=== PATIENT | female | born 1945 | race Caucasian/White ===

== ENCOUNTER → 2025-02-01 14:12 | Outpatient (BNVA) | payer MEDICARE, SELFPAY | PROVIDERS: PCP Family Medicine; Referring Provider Family Medicine; Visit Provider Orthopaedic Surgery | DX: M25.561 Pain in right knee (principal) | CPT/HCPCS: 73560; 73565 ==

== ENCOUNTER → 2025-02-23 12:57 | Outpatient (BNVA) | payer MEDICARE, SELFPAY | PROVIDERS: PCP Family Medicine; Visit Provider Orthopaedic Surgery | DX: M17.11 Unilateral primary osteoarthritis, right knee (principal) | CPT/HCPCS: 99213 ==

== ENCOUNTER → 2025-05-27 11:05 | Outpatient (BNVA) | payer MEDICARE, SELFPAY | PROVIDERS: PCP Family Medicine; Visit Provider Orthopaedic Surgery | DX: M17.11 Unilateral primary osteoarthritis, right knee (principal); Z01.818 Encounter for other preprocedural examination; G89.29 Other chronic pain | CPT/HCPCS: 36415; 80053; 81001; 85025; 99213 ==

== ENCOUNTER → 2025-06-04 11:34 | Outpatient (BNVA) | payer MEDICARE, SELFPAY | PROVIDERS: PCP Family Medicine; Visit Provider Family Medicine | DX: Z01.818 Encounter for other preprocedural examination (principal); I45.10 Unspecified right bundle-branch block; I44.4 Left anterior fascicular block; I42.0 Dilated cardiomyopathy | CPT/HCPCS: 93005 ==

== ENCOUNTER → 2025-06-09 09:14 | Day surgery (SDC) | payer MEDICARE, SELFPAY ==
--- NOTE | 2025-06-09 09:47 | PC.NURSE ---
Patient was in the waiting room. Silvana went out to get her patient and was contacted by Homar Joanne's guest. Mrs. Rubio stated she wasn't doing this and was exited the building.
== END ==
PROVIDERS: PCP Family Medicine; Visit Provider Orthopaedic Surgery
DX: Z53.8 Procedure and treatment not carried out for other reasons (principal)
CPT/HCPCS: J0131; J1100; J2405; J2704

== ENCOUNTER → 2025-07-26 13:09 | Outpatient (BNVA) | payer MEDICARE, SELFPAY | PROVIDERS: PCP Family Medicine; Visit Provider Orthopaedic Surgery | DX: M17.11 Unilateral primary osteoarthritis, right knee (principal) | CPT/HCPCS: 99213 ==

== ENCOUNTER 2025-07-28 05:49 | Day surgery (SDC) | payer MEDICARE, SELFPAY ==
[2025-07-28 06:21] VITALS: BP 135/60; PULSE 98; RESP 18; TEMP 36.6; O2SAT 98; BMI 29.3
--- NOTE | 2025-07-28 06:30 | ECG_ITS ---
[employer] Test Date: 2025-07-28 Pat Name: SHAMA LOPEZ Department: Room: Gender: Female Outside Sales Professional: : 1945 Requested By: Lia Cano Order Number: [id number] Reading MD: Measurements Intervals [place] Rate: 81 P: 46 PA: 187 QRS: -63 QRSD: 150 T: 13 QT: 419 QTc: 489 Interpretive Statements SINUS RHYTHM RIGHT BUNDLE BRANCH BLOCK [120+ ms QRS DURATION, UPRIGHT V1, 40+ ms S IN I/aVL/V4/V5/V6] LEFT ANTERIOR FASCICULAR BLOCK [QRS AXIS <= -45, QR IN I, RS IN II] VOLTAGE CRITERIA FOR LVH [MEETS CRITERIA IN ONE OF: R(aVL), S(V1), R(V5), R(V5/V6)+S(V1)] POSSIBLE SEPTAL MYOCARDIAL INFARCTION , PROBABLY OLD [30 ms Q WAVE IN V1/V2] [email or web address]
--- NOTE | 2025-07-28 06:35 | PC.NURSE ---
16fr rudd placed at 0635. stat lock placed on left thigh. Urinalysis obtained at this time.
[2025-07-28 07:06] LABS: Hematocrit 39.3 % (36-47); Hemoglobin 12.50 g/dL (11.27-16.99); Mean Corpuscular HGB Conc 31.8 g/dL (30-55); Mean Corpuscular Hemoglobin 28.6 pg (27-33); Mean Corpuscular Volume 89.9 fl (85-98); Nucleated Red Blood Cells % 0 %; Platelet Count 179 10^3/cmm (157-399); Red Blood Count 4.37 10^6/uL (3.85-5.65); White Blood Count 6.44 10^3/uL (3.29-11.43)
--- NOTE | 2025-07-28 07:07 | P.MISC_ITS ---
Miscellaneous Note Note: Patient presented [facility]. Nurses felt pulse was irregular, but EKG showed NSR. Also there was concern from nursing for UTI due to malodorous perineal area, so rudd and UA and was placed pre-operatively. A Discussion between surgeon, , and led to decision to postpone surgery after a more thorough evaluation due to 1.) concern for her dementia advancing quite quickly since being seen in the ortho clinic and with Dr. Aranda and 2.) the concern for the patient's ability to follow post-op instructions in setting of advancing dementia (patient doesn't know why she is here this morning, has already tried to pull her rudd catheter out) as well as 3.) her 's ability to care for her. So placement would most likely be required, which patient is refusing. Conversation also revealed that stated she had fallen yesterday. This was unwitnessed by him. He feels she is acting no different than normal, but due to patient's advanced age and the unwitnessed fall, would be prudent to send to ER for further evaluation of this fall. is willing to bring her to ER.
--- NOTE | 2025-07-28 07:09 | PM.PN ---
Subjective Subjective: Patient is in for right total knee arthroplasty. However, she is very confused today. She asked multiple times why she is here at the hospital. When we have discussed her total knee arthroplasty the been talking about since January she states she does not remember any of this. Her confirms that her dementia has worsened over the last 4 to 5 months. Anesthesia initial evaluation felt that she had irregular heart rate however EKG was negative for any new findings. There is no signs of A-fib. Labs are being drawn for evaluation. Presently patient is not complaining of any knee pain at this time. Even with my palpation of the area. I have expressed to her that I am more concerned about the postoperative care and being able to follow through with instructions. We briefly discussed the possibility of a rehab stay postoperatively and the patient is very adamant about not doing this Vitals/I&O/Wt Last Vital Signs Temp 97.9 F 07/28/25 06:21 Pulse 98 07/28/25 06:21 Resp 18 07/28/25 06:21 BP 135/60 07/28/25 06:21 Pulse Ox 98 07/28/25 06:21 O2 Del Method Room Air 07/28/25 06:21 Weight last 48 hrs Weight 171 lb Data 07/28/25 06:58 07/28/25 06:58 A&P Assessment and plan 1. Arthritis of knee, right: Patient is here this morning for a right total knee arthroplasty that was scheduled sometime ago. She has been cleared by Dr. Aranda for medical clearance. She been seen by myself for more than 1 occasion with most recently being seen yesterday. Medical evaluation does not discuss any type of dementia. I have no clinical notes from their primary care provider that they usually see. Patient yesterday be had to be reminded about having her knee replaced which she seemed to remember however this morning she continually keeps asking why she is at the hospital what type of surgery they want to do. She is very confused this morning and I have concerns about postoperative care. lives with her however states that she fell the other day and had a hard time getting her back up. Patient is not interested in rehab stay and is very adamant about it postoperatively. I myself have seen increased memory loss and signs of dementia since I originally saw her back in January of this year. Therefore, at this time I do not feel that we should proceed forward with the surgery at this time. I believe that she needs to be worked up by her primary care to see if there is anything further that can be done to help with her mental status. I have also expressed to the that I am more concerned about the postoperative care than doing the surgery itself. I am concerned the patient will not follow through with postoperative instructions and even though he is there she has to be able to do this. I am also concerned that she will not go through with rehab in the end and end up with a flexion contracture of her knee. She then has a new knee that is nonfunctional. So at this time we will cancel surgery and await further workup by her primary care. PDMP PDMP Reviewed: Not Reviewed Attestations Medical Necessity Statement*: Patient in need of medical workup for dementia. This will be done through her primary care provider Coding Level of Care Code Acute Code for [facility] Fwd Diagnoses Arthritis of knee, right M17.11
[2025-07-28 07:10] LABS: Glucose Urine UA Negative (Normal); Nitrate Urine Negative (Negative); Specific Gravity, Urine 1.020 (1.005-1.030)
[2025-07-28 07:12] LABS: Add Urine Microscopic? YES
--- NOTE | 2025-07-28 07:22 | PC.NURSE ---
This RN went and got the patient out of the restroom in the waiting room area. At that time I noted a foul odor, was unsure if it was the urine at that time. Then when we got the patient into the room. Patient was very confused but it was noted that the patient had dementia. During the assessment HOME Rai said the patients heart rhythm sounded irregular. After speaking with Dr. Gastelum she recommend getting an EKG and a urinalysis. Both collected. During placing the rudd cath the stated the patient fell last night and it took awhile to get her out of the floor. Dr. Mehta notified of the concerns after he spoke with the patient he did not feel comfortable to do the case. Dr. Gastelum spoke with the about the fall and he stated he did not witness the fall, that he just found her in the floor. Dr. Gastelum felt like it was the best to have the patient evaluated in the emergency room but she also wanted to recheck potassium. Blood work obtained and patient then sent to the emergency room via gurney and put in ER room 14. Charge nurse was in the room to receive report.
[2025-07-28 07:23] LABS: Alanine Aminotransferase 9 U/L (0-33); Albumin Level 3.8 g/dL (3.5-5.2); Alkaline Phosphatase 104 U/L (35-105); Aspartate Amino Transferase 24 U/L (0-32); Blood Urea Nitrogen 30 mg/dL (8-23); Calcium 9.2 mg/dL (8.5-10.5); Carbon Dioxide 22 mmol/L (22-29); Chloride 103 mmol/L (98-107); Creatinine Clr Calc Pharmacy 57.4721; Globulin 2.6 g/dL (1.3-4.6); Glucose 109 mg/dL (65-115); Osmolality Calculated 295 mOsm/kg (285-295); Sodium 139 mmol/L (136-145); Total Protein 6.4 g/dL (6.6-8.7)
[2025-07-28 07:24] LABS: Anion Gap 18.0 (5-19); Potassium 4.0 mmol/L (3.5-5.1)
[2025-07-28 07:36] LABS: UA Slide Review UA Slide Review Perf
== END 2025-07-28 07:15 | disposition home or self-care (01) ==
PROVIDERS: Anesthesiology; PCP Family Medicine; Visit Provider Orthopaedic Surgery
PROC: (CPT 27447; principal; 2025-07-28 07:00)
DX: Z53.8 Procedure and treatment not carried out for other reasons (principal)
CPT/HCPCS: 36415; 51702; 80053; 81001; 85025; 87086; 93005

== ENCOUNTER 2025-07-28 07:13 | Emergency (ER) | payer MEDICARE, SELFPAY ==
[2025-07-28 07:16] VITALS: BP 135/99; PULSE 100; RESP 18; TEMP 36.5; O2SAT 99
--- OUTSIDE RECORDS SUMMARY | 2025-07-28 07:17 | XMS_ITS | Encounter Summary ---
Author Organization [facility] Address [address] [place] [address] Care Team Providers Care Converter Skimmer Name Role Phone Unavailable Primary Care Provider Unavailabl e Encounter Details Date Type Department Care Team (Late st Contact Info) Description 07/04/2013 Ancillary Orders [facility] [place] [address] [place] [address] Social History Tobacco Use Types Packs/Day Years Used Date Smoking Tobacco: Never Assessed Comments Unknown Sex and Gender Information Value Date Recorded Sex Assigned at Not on file Legal Sex Female 5:07 AM SUPPORT COORDINATOR Gender Identity Not on file Sexual Orientation Not on file documented as of this encounter Plan of Treatment Not on file documented as of this encounter Procedures Procedure Name Priority Date/Time Associated Diagnosis Comments CBC WITH DIFFERENTIAL Routine 07/04/2013 1:00 PM CDT TSH Routine 07/04/2013 1:00 PM CDT IRON LEVEL Routine 07/04/2013 1:00 PM CDT HEMOGLOBIN A1C Routine 07/04/2013 1:00 PM CDT FERRITIN Routine 07/04/2013 1:00 PM CDT LIPID PANEL Routine 07/04/2013 1:00 PM CDT COMPREHENSIVE METABOLIC PANEL Routine 07/04/2013 1:00 PM CDT documented in this encounter Results * (ABNORMAL) LIPID PANEL (07/04/2013 1:00 PM CDT) CHOLESTEROL 235(H) 130 - 200 mg/dL 07/06/2013 8:04 PM CDT [facility] TRIGLYCERIDE 175 30 - 200 mg/dL 07/06/2013 8:04 PM CDT [facility] [employer] [facility] HDL 64 35 - 80 mg/dL 07/06/2013 8:04 PM CDT [facility] LDL CALCULATED 136(H) 0 - 100 mg/dL 07/06/2013 8:04 PM CDT [facility] [employer] [facility] Blood specimen (specimen) 07/04/2013 1:00 PM CDT 07/06/2013 7:50 PM CDT Narrative [facility] - 07/06/2013 8:04 PM CDT TOTAL CHOLESTEROL mg/dL Desirable <200 Borderline high 200-239 High >=240 TRIGLYCERIDES mg/dL Normal <150 Borderline high 150-199 High 200-499 Very high >=500 HDL CHOLESTEROL mg/dL Low <40 Normal 40-60 Desirable >60 LDL CHOLESTEROL mg/dL Optimal <100 Low risk 100-129 Borderline high 130-159 High 160-189 Very high >=190 Based on AHA/NCEP Guidelines us External Provider Mtnv CHEMISTRY ORDERABLES Genesis l Result [facility] [employer] [facility] CLIA # [id number] [address] [place] [address] * (ABNORMAL) COMPREHENSIVE METABOLIC PANEL (07/04/2013 1:00 PM CDT) SODIUM 140 136 - 145 mmol/L 07/06/2013 8:04 PM CDT [facility] POTASSIUM 4.8 3.5 - 5.1 mmol/L 07/06/2013 8:04 PM CDT [facility] CHLORIDE 102 98 - 107 mmol/L 07/06/2013 8:04 PM CDT [facility] CO2 30 21 - 32 mmol/L 07/06/2013 8:04 PM CDT [facility] CALCIUM 9.3 8.5 - 10.1 mg/dL 07/06/2013 8:04 PM CDT [facility] [employer] [facility] BUN 10 7 - 18 mg/dL 07/06/2013 8:04 PM [facility] CREATININE 1.00 0.60 - 1.30 mg/dL 07/06/2013 8:04 PM [facility] GLUCOSE 85 74 - 106 mg/dL 07/06/2013 8:04 PM [facility] TOTAL PROTEIN 7.0 6.4 - 8.2 g/dL 07/06/2013 8:04 PM [facility] ALBUMIN 3.8 3.4 - 5.0 g/dL 07/06/2013 8:04 PM [facility] BILIRUBIN TOTAL 0.5 0.2 - 1.0 mg/dL 07/06/2013 8:04 PM [facility] ALKALINE PHOSPHATASE 70 50 - 136 U/L 07/06/2013 8:04 PM [facility] AST 28 15 - 37 U/L 07/06/2013 8:04 PM [facility] ALT 21(L) 30 - 65 U/L 07/06/2013 8:04 PM [facility] GFR 55(L) >=60 mL/min/1.7 3 sq meter 07/06/2013 8:04 PM [facility] Comment: eGFR has not been validated for use in the elderly (> 70 years of age), women, patients with serious co-morbid conditions, or persons with extremes of body size or muscle mass and should also be interpreted with caution in patients with acute kidney failure, dialysis dependant patients, patients reporting exceptional dietary intake (e.g. vegetarian diet, high protein diets, creatine supplementation), and patients with severe liver disease. Based on National Kidney Disease Education Program GFR, 67 >=60 mL/min/1.7 3 sq meter 07/06/2013 8:04 PM [facility] Comment: eGFR has not been validated for use in the elderly (> 70 years of age), women, patients with serious co-morbid conditions, or persons with extremes of body size or muscle mass and should also be interpreted with caution in patients with acute kidney failure, dialysis dependant patients, patients reporting exceptional dietary intake (e.g. vegetarian diet, high protein diets, creatine supplementation), and patients with severe liver disease. Based on National Kidney Disease Education Program Blood specimen (specimen) 07/04/2013 1:00 PM CDT 07/06/2013 7:50 PM CDT us External Provider Mtnv CHEMISTRY ORDERABLES Genesis l Result [facility] [place] CLIA # [id number] [address] [place] [address] * (ABNORMAL) CBC WITH DIFFERENTIAL (07/04/2013 1:00 PM CDT) WBC 7.0 4.0 - 10.0 K/uL 07/04/2013 6:24 PM CDT [facility] [place] RBC 4.44 3.93 - 5.22 M/uL 07/04/2013 6:24 PM CDT [facility] [place] HEMOGLOBIN 13.7 11.2 - 15.7 g/dL 07/04/2013 6:24 PM CDT [facility] [place] HEMATOCRIT 40.4 34.1 - 44.9 % 07/04/2013 6:24 PM CDT [facility] [employer] [facility] [place] MCV 91.0 79.4 - 94.8 fL 07/04/2013 6:24 PM CDT [facility] [employer] [facility] [place] MCH 30.9 25.6 - 32.2 pg 07/04/2013 6:24 PM CDT [facility] [employer] [facility] [place] MCHC 33.9 32.2 - 35.5 g/dL 07/04/2013 6:24 PM CDT [facility] [employer] [facility] [employer] [facility] [place] RDW 12.7 11.0 - 14.5 % 07/04/2013 6:24 PM CDT [facility] [place] RDW-STDEV 41.4 37.0 - 54.0 fL 07/04/2013 6:24 PM CDT [facility] [employer] [facility] [place] PLATELETS 216 163 - 337 K/uL 07/04/2013 6:24 PM CDT [facility] [employer] [facility] [place] MPV 11.2 10.0 - 14.8 fL 07/04/2013 6:24 PM CDT [facility] [employer] [facility] [place] NEUTROPHILS 44 34 - 71 % 07/04/2013 6:24 PM CDT [facility] [place] LYMPHOCYTES 38 19 - 52 % 07/04/2013 6:24 PM CDT [facility] [place] MONOCYTES 13 5 - 13 % 07/04/2013 6:24 PM CDT [facility] [place] EOSINOPHILS 4 1 - 6 % 07/04/2013 6:24 PM CDT [facility] [place] BASOPHILS 1 0 - 1 % 07/04/2013 6:24 PM CDT [facility] [place] NEUTROPHIL ABSOLUTE 3.09 1.56 - 6.13 K/uL 07/04/2013 6:24 PM CDT [facility] [place] LYMPHOCYTE ABSOLUTE 2.68 1.20 - 3.40 K/uL 07/04/2013 6:24 PM CDT [facility] [place] MONOCYTE ABSOLUTE 0.88(H) 0.24 - 0.36 K/uL 07/04/2013 6:24 PM CDT [facility] [place] EOSINOPHIL ABSOLUTE 0.27 0.04 - 0.36 K/uL 07/04/2013 6:24 PM CDT [facility] [place] BASOPHILS ABSOLUTE 0.06 0.01 - 0.08 K/uL 07/04/2013 6:24 PM CDT [facility] [place] Blood specimen (specimen) 07/04/2013 1:00 PM CDT 07/04/2013 5:27 PM CDT us External Provider Mtnv HEMATOLOGY ORDERABLES Fin al Result [facility] [place] CLIA # [id number] [address] [place] [address] * TSH (07/04/2013 1:00 PM CDT) TSH 3.97 0.30 - 4.80 uIU/mL 07/04/2013 7:36 PM CDT [facility] [place] Blood specimen (specimen) 07/04/2013 1:00 PM CDT 07/04/2013 5:27 PM CDT us External Provider Mtnv CHEMISTRY ORDERABLES Genesis l Result Performing Organization Address [facility] Co de Phone Number [facility] CLIA # [id number] [address] [place] [address] * HEMOGLOBIN A1C (07/04/2013 1:00 PM CDT) HEMOGLOBIN A1C 5.7 4.5 - 6.2 % 07/04/2013 8:40 PM CDT [facility] EST. AVG GLUCOSE, A1C 117 mg/dL 07/04/2013 8:40 PM CDT [facility] Blood specimen (specimen) 07/04/2013 1:00 PM CDT 07/04/2013 5:27 PM CDT External Provider Mtnv CHEMISTRY ORDERABLES Genesis l Result Performing Organization Address [facility] de Phone Number [facility] CLIA # [id number] [address] [place] [address] * FERRITIN (07/04/2013 1:00 PM CDT) Pathologist [facility] FERRITIN 101.0 8.0 - 252.0 ng/mL 07/04/2013 6:06 PM CDT [facility] Blood specimen (specimen) 07/04/2013 1:00 PM CDT 07/04/2013 5:27 PM CDT External Provider Mtnv CHEMISTRY ORDERABLES Genesis l Result Performing Organization Address City/[facility]/ZIP Co de Phone Number [facility] CLIA # [id number] [address] [place] [address] * IRON LEVEL (07/04/2013 1:00 PM CDT) IRON 94 50 - 170 ug/dL 07/04/2013 6:06 PM CDT [facility] Blood specimen (specimen) 07/04/2013 1:00 PM CDT 07/04/2013 5:27 PM CDT us External Provider Mtnv CHEMISTRY ORDERABLES Genesis meredith Result [facility] # [id number] [address] [place] [address] [address] [place] [address] documented in this encounter Visit Diagnoses Not on filedocumented in this encounter
--- OUTSIDE RECORDS SUMMARY | 2025-07-28 07:17 | XMS_ITS | Encounter Summary ---
Author Organization [employer] [facility] Address [address] [place] [address] Care Team Providers Care Director Pharmacology Name Role Phone Unavailable Primary Care Provider Unavailabl e Encounter Details Date Type Department Care Team (Late st Contact Info) Description 07/05/2012 Ancillary Orders [facility] [place] [address] [facility] [address] [place] [id number] Social History Tobacco Use Types Packs/Day Years Used Date Smoking Tobacco: Never Assessed Comments Unknown Sex and Gender Information Value Date Recorded Sex Assigned at Not on file Legal Sex Female 5:07 AM DIE DEVELOPER Gender Identity Not on file Sexual Orientation Not on file documented as of this encounter Plan of Treatment Not on file documented as of this encounter Procedures Procedure Name Priority Date/Time Associated Diagnosis Comments TSH Routine 07/05/2012 11:56 AM CDT LIPID PANEL Routine 07/05/2012 11:56 AM CDT documented in this encounter Results * TSH (07/05/2012 11:56 AM CDT) TSH 3.16 0.30 - 4.80 uIU/mL 07/05/2012 3:00 PM CDT [facility] Blood specimen (specimen) 07/05/2012 11:56 AM CDT 07/05/2012 11:56 AM CDT us External Provider Mtnv CHEMISTRY ORDERABLES Genesis l Result [facility] CLIA # [id number] [address] [facility] [address] [place] [address] * (ABNORMAL) LIPID PANEL (07/05/2012 11:56 AM CDT) CHOLESTEROL 241(H) 130 - 200 mg/dL 07/05/2012 3:00 PM CDT [facility] TRIGLYCERIDE 183 30 - 200 mg/dL 07/05/2012 3:00 PM CDT [facility] HDL 72 35 - 80 mg/dL 07/05/2012 3:00 PM CDT [facility] LDL CALCULATED 132(H) 0 - 100 mg/dL 07/05/2012 3:00 PM CDT [facility] Blood specimen (specimen) 07/05/2012 11:56 AM CDT 07/05/2012 11:56 AM CDT Narrative [facility] - 07/05/2012 3:00 PM CDT TOTAL CHOLESTEROL mg/dL Desirable <200 Borderline high 200-239 High >=240 TRIGLYCERIDES mg/dL Normal <150 Borderline high 150-199 High 200-499 Very high >=500 HDL CHOLESTEROL mg/dL Low <40 Normal 40-60 Desirable >60 LDL CHOLESTEROL mg/dL Optimal <100 Low risk 100-129 Borderline high 130-159 High 160-189 Very high >=190 Based on AHA/NCEP Guidelines us External Provider Mtnv CHEMISTRY ORDERABLES Genesis l Result [facility] CLIA # [id number] [address] [place] [address] documented in this encounter Visit Diagnoses Not on filedocumented in this encounter
--- OUTSIDE RECORDS SUMMARY | 2025-07-28 07:17 | XMS_ITS | Encounter Summary ---
Author Organization [facility] Address [address] [place] [address] Care Team Providers Care Supervisor Lending Activities Name Role Phone Unavailable Primary Care Provider Unavailabl e Encounter Details Date Type Department Care Team (Late st Contact Info) Description 07/27/2025 External Device Data [facility] ABSTRACTION Provider, Abstract NO ADDRESS ON FILE Social History Tobacco Use Types Packs/Day Years Used Date Smoking Tobacco: Never Assessed Comments Unknown Sex and Gender Information Value Date Recorded Sex Assigned at Not on file Legal Sex Female 6:29 AM DENTAL CHAIRSIDE ASSISTANT Gender Identity Not on file Sexual Orientation Not on file documented as of this encounter Plan of Treatment Not on file documented as of this encounter Visit Diagnoses Not on filedocumented in this encounter
--- OUTSIDE RECORDS SUMMARY | 2025-07-28 07:17 | XMS_ITS | Encounter Summary ---
Author Organization [employer] [facility] Address [address] [place] [address] Care Team Providers Care Canvas Baster Jumpbasting Name Role Phone Unavailable Primary Care Provider Unavailabl e Encounter Details Date Type Department Care Team (Latest Contact Info) Description 10/05/2006 Outpatient Historical [facility] [address] [place] [address] AMBULANCE, [facility] Diarrhea (Primary Dx) Social History Tobacco Use Types Packs/Day Years Used Date Smoking Tobacco: Never Assessed Comments Unknown Sex and Gender Information Value Date Recorded Sex Assigned at Not on file Legal Sex Female 5:07 AM FORM SETTER [address] [employer]MS Gender Identity Not on file Sexual Orientation Not on file documented as of this encounter Plan of Treatment Not on file documented as of this encounter Visit Diagnoses Diagnosis Diarrhea- Primary documented in this encounter
--- OUTSIDE RECORDS SUMMARY | 2025-07-28 07:17 | XMS_ITS | Clinical Summary ---
Author Organization [facility] Address [address] [place] [address] Care Team Providers Care Welding Process Engineer Name Role Phone Unavailable Primary Care Provider Unavailabl e Social History Tobacco Use Types Packs/Day Years Used Date Smoking Tobacco: Never Assessed Comments Unknown Sex and Gender Information Value Date Recorded Sex Assigned at Not on file Legal Sex Female 5:07 AM DUST BOX WORKER Gender Identity Not on file Sexual Orientation Not on file Plan of Treatment Health Maintenance Due Date Last Done Comments DTAP/TDAP/TD VACCINES (1 - Tdap) 1964 PNEUMOCOCCAL VACCINE 50+ YEARS (1 of 1 - PCV) 10/08/18 96 ZOSTER VACCINE (1 of 2) 1995 OSTEOPOROSIS SCREENING 2010 RSV VACCINE (60+ or ) (1 - 1-dose 75+ series) 2020 INFLUENZA VACCINE (#1) 2025
--- OUTSIDE RECORDS SUMMARY | 2025-07-28 07:18 | XMS_ITS | Encounter Summary ---
Author Organization [facility] Address [address] [place] [address] Care Team Providers Care Energy Efficiency Engineer Name Role Phone Unavailable Primary Care Provider Unavailabl e Encounter Details Date Type Department Care Team (Latest Contact Info) Description 02/15/2006 Outpatient Historical [facility] Plastic Surgery [address] [place] [phone] Jonathon Wallace MD [address] [place] [address] Lipodystrophy (Primary Dx) Social History Tobacco Use Types Packs/Day Years Used Date Smoking Tobacco: Never Assessed Comments Unknown Sex and Gender Information Value Date Recorded Sex Assigned at Not on file Legal Sex Female 5:07 AM BLURB WRITER Gender Identity Not on file Sexual Orientation Not on file documented as of this encounter Plan of Treatment Not on file documented as of this encounter Visit Diagnoses Diagnosis Lipodystrophy- Primary documented in this encounter
--- OUTSIDE RECORDS SUMMARY | 2025-07-28 07:18 | XMS_ITS | Clinical Summary ---
Author Organization [facility] Address [address] [place] [address] Attn: Epic Prelude ADT RESHMA GONGORA [id number] Care Team Providers Care Volunteer Manager Name Role Phone Unavailable Primary Care Provider Unavailabl e Encounters Date Type Department Care Team Description 07/27/2025 External Device Data ST[facility] ABSTRACTION Provider, Abstract 07/20/2025 External Device Data [facility] ABSTRACTION Provider, Abstract 06/01/2025 External Device Data [facility] ABSTRACTION Provider, Abstract 05/18/2025 External Device Data [facility] ABSTRACTION Provider, Abstract 05/11/2025 External Device Data ST[facility] ABSTRACTION Provider, Abstract 05/05/2025 External Device Data STL ABSTRACTION Provider, Abstract from Last 3 Months Social History Tobacco Use Types Packs/Day Years Used Date Smoking Tobacco: Never Assessed Comments Unknown Sex and Gender Information Value Date Recorded Sex Assigned at Not on file Legal Sex Female 6:29 AM DIAMOND SIZER AND GRADER Gender Identity Not on file Sexual Orientation Not on file Plan of Treatment Health Maintenance Due Date Last Done Comments OSTEOPOROSIS SCREENING 2010 RSV VACCINE (60+ or ) (1 - 1-dose 75+ series) 2020 INFLUENZA VACCINE (#1) 2025 , 09/25/2023, 09/07/2022, Additional history exists COVID-19 Vaccine ( - 2024-2 6 season) 2025 10/04/2021, 12/23/2020, 11/25/2020 DTAP/TDAP/TD VACCINES (2 - T d or Tdap) 03/25/2033 03/25/2023 PNEUMOCOCCAL VACCINE 50+ YEARS Completed 09/13/2016 , 04/30/2011 ZOSTER VACCINE Completed 12/09/2019, 08/01, 09/10/2013 Insurance [place] [id number]
--- OUTSIDE RECORDS SUMMARY | 2025-07-28 07:18 | XMS_ITS | Encounter Summary ---
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 Gender Identity Not on file Sexual Orientation Not on file documented as of this encounter Plan of Treatment Not on file documented as of this encounter Procedures Procedure Name Priority Date/Time Associated Diagnosis Comments CBC WITH DIFFERENTIAL Routine 07/03/2014 10:09 AM CDT TSH Routine 07/03/2014 10:09 AM CDT IRON LEVEL Routine 07/03/2014 10:09 AM CDT HEMOGLOBIN A1C Routine 07/03/2014 10:09 AM CDT LIPID PANEL Routine 07/03/2014 10:09 AM CDT COMPREHENSIVE METABOLIC PANEL Routine 07/03/2014 10:09 AM CDT documented in this encounter Results * HEMOGLOBIN A1C (07/03/2014 10:09 AM CDT) HEMOGLOBIN A1C 5.9 4.5 - 6.2 % 07/03/2014 5:21 PM CDT [facility] EST. AVG GLUCOSE, A1C 123 mg/dL 07/03/2014 5:21 PM CDT [facility] Blood Venipuncture - L ab Collect / Unknown 07/03/2014 10:09 AM CDT 07/03/2014 10:09 AM CDT us Nimisha Payan MD CHEMISTRY ORDERABLES Final Result [facility] CLIA # [id number] [address] [place] [id number] * (ABNORMAL) LIPID PANEL (07/03/2014 10:09 AM CDT) CHOLESTEROL 237(H) 130 - 200 mg/dL 07/03/2014 3:28 PM CDT [facility] TRIGLYCERIDE 150 30 - 200 mg/dL 07/03/2014 3:28 PM CDT [facility] HDL 68 35 - 80 mg/dL 07/03/2014 3:28 PM CDT [facility] LDL CALCULATED 139(H) 0 - 100 mg/dL 07/03/2014 3:28 PM CDT [facility] NON-HDL CHOLESTEROL 169 mg/dL 07/03/2014 3:28 PM CDT [facility] Blood Venipuncture - L ab Collect / Unknown 07/03/2014 10:09 AM CDT 07/03/2014 10:09 AM CDT Narrative [facility] - 07/03/2014 3:28 PM CDT TOTAL CHOLESTEROL mg/dL Desirable <200 Borderline high 200-239 High >=240 TRIGLYCERIDES mg/dL Normal <150 Borderline high 150-199 High 200-499 Very high >=500 HDL CHOLESTEROL mg/dL Low <40 Normal 40-60 Desirable >60 LDL CHOLESTEROL mg/dL Optimal <100 Low risk 100-129 Borderline high 130-159 High 160-189 Very high >=190 NON HDL CHOLESTEROL mg/dL Desirable <130 Borderline high 130-159 High 160-189 Very high >=190 Based on AHA/NCEP Guidelines us Nimisha Payan MD CHEMISTRY ORDERABLES Final Result [facility] [place] CLIA # [id number] [address] [facility] [address] [place] [address] * (ABNORMAL) CBC WITH DIFFERENTIAL (07/03/2014 10:09 AM CDT) WBC 5.1 4.0 - 10.0 K/uL 07/03/2014 2:29 PM CDT [facility] [place] RBC 4.25 3.93 - 5.22 M/uL 07/03/2014 2:29 PM CDT [facility] [place] HEMOGLOBIN 13.1 11.2 - 15.7 g/dL 07/03/2014 2:29 PM CDT [facility] [place] HEMATOCRIT 38.6 34.1 - 44.9 % 07/03/2014 2:29 PM CDT [facility] [place] MCV 90.8 79.4 - 94.8 fL 07/03/2014 2:29 PM CDT [facility] [place] [place] MCH 30.8 25.6 - 32.2 pg 07/03/2014 2:29 PM CDT [facility] [place] MCHC 33.9 32.2 - 35.5 g/dL 07/03/2014 2:29 PM CDT [facility] [place] RDW 12.9 11.0 - 14.5 % 07/03/2014 2:29 PM CDT [facility] [place] RDW-STDEV 42.0 36.9 - 56.9 fL 07/03/2014 2:29 PM CDT [facility] [place] PLATELETS 257 163 - 337 K/uL 07/03/2014 2:29 PM CDT [facility] [place] MPV 10.2 10.0 - 14.8 fL 07/03/2014 2:29 PM CDT [facility] [place] NEUTROPHILS 49 34 - 71 % 07/03/2014 2:29 PM CDT [facility] [place] LYMPHOCYTES 32 19 - 52 % 07/03/2014 2:29 PM CDT [facility] [place] MONOCYTES 13 5 - 13 % 07/03/2014 2:29 PM CDT [facility] [place] EOSINOPHILS 4 1 - 6 % 07/03/2014 2:[address] [facility] [place] BASOPHILS 1 0 - 1 % 07/03/2014 2:[address] [facility] [place] NEUTROPHIL ABSOLUTE 2.53 1.56 - 6.13 K/uL 07/03/2014 2:[address] [facility] [place] LYMPHOCYTE ABSOLUTE 1.64 1.20 - 3.40 K/uL 07/03/2014 2:29 PM CDT [facility] [place] MONOCYTE ABSOLUTE 0.67(H) 0.24 - 0.36 K/uL 07/03/2014 2:[address] [facility] [place] EOSINOPHIL ABSOLUTE 0.22 0.04 - 0.36 K/uL 07/03/2014 2:[address] [facility] [place] BASOPHILS ABSOLUTE 0.04 0.01 - 0.08 K/uL 07/03/2014 2:29 PM CD[address] [facility] [place] IMMATURE GRANULOCYTES 0 % 07/03/2014 2:29 PM CDT [facility] [place] IMMATURE GRANULOCYTES ABSOLUTE 0.02 K/uL 07/03/2014 2:29 PM CDT [facility] [place] Blood Venipuncture - L ab Collect / Unknown 07/03/2014 10:09 AM CDT 07/03/2014 10:09 AM CDT us Nimisha Payan MD HEMATOLOGY ORDERABLES Final Result [facility] [place] IA # [id number] [address] [place] [phone] * (ABNORMAL) COMPREHENSIVE METABOLIC PANEL (07/03/2014 10:09 AM CDT) SODIUM 138 136 - 145 mmol/L 07/03/2014 3:28 PM CDT [facility] [place] POTASSIUM 4.0 3.5 - 5.1 mmol/L 07/03/2014 3:28 PM CDT [facility] [place] CHLORIDE 103 98 - 107 mmol/L 07/03/2014 3:28 PM CDT [facility] [place] CO2 27 21 - 32 mmol/L 07/03/2014 3:28 PM CDT [facility] [place] CALCIUM 8.7 8.5 - 10.1 mg/dL 07/03/2014 3:28 PM [facility] BUN 11 7 - 18 mg/dL 07/03/2014 3:28 PM [facility] CREATININE 0.90 0.60 - 1.30 mg/dL 07/03/2014 3:28 PM [facility] GLUCOSE 88 74 - 106 mg/dL 07/03/2014 3:28 PM [facility] TOTAL PROTEIN 6.7 6.4 - 8.2 g/dL 07/03/2014 3:28 PM [facility] ALBUMIN 3.2(L) 3.4 - 5.0 g/dL 07/03/2014 3:28 PM [facility] BILIRUBIN TOTAL 0.3 0.2 - 1.0 mg/dL 07/03/2014 3:28 PM [facility] ALKALINE PHOSPHATASE 54 46 - 116 U/L 07/03/2014 3:28 PM [facility] AST 24 15 - 37 U/L 07/03/2014 3:28 PM [facility] ALT 18(L) 30 - 65 U/L 07/03/2014 3:28 PM [facility] GFR >60 >=60 mL/min/1.7 3 sq meter 07/03/2014 3:28 PM [facility] Comment: eGFR has not been validated for use in the elderly (> 70 years of age), women, patients with serious co-morbid conditions, or persons with extremes of body size or muscle mass and should also be interpreted with caution in patients with acute kidney failure, dialysis dependent patients, patients reporting exceptional dietary intake (e.g. vegetarian diet, high protein diets, creatine supplementation), and patients with severe liver disease. Based on National Kidney Disease Education Program If patient is , please refer to the GFR result. GFR, >60 >=60 mL/min/1.7 3 sq meter 07/03/2014 3:28 PM [facility] ANION GAP 8(L) 12 - 20 07/03/2014 3:[address] [facility] Blood Venipuncture - L ab Collect / Unknown 07/03/2014 10:09 AM CDT 07/03/2014 10:09 AM CDT Narrative [facility] - 07/03/2014 3:28 PM CDT Effective 06/03/2014, the Alkaline Phosphatase test method and reference range have changed. Please take this into consideration when interpreting results prior to or after this date. us Nimisha Payan MD CHEMISTRY ORDERABLES Final Result Performing Organization Address City/[facility]/ZIP Co de Phone Number [facility] [employer] CLIA # [id number] [address] [place], [place] [address] * TSH (07/03/2014 10:09 AM CDT) TSH 3.57 0.30 - 4.80 uIU/mL 07/03/2014 3:28 PM CDT [facility] Blood Venipuncture - L ab Collect / Unknown 07/03/2014 10:09 AM CDT 07/03/2014 10:09 AM CDT us Nimisha Payan MD CHEMISTRY ORDERABLES Final Result Performing Organization Address [facility] Co de Phone Number [facility] CLIA # [id number] [address] [place], [place] [id number] * IRON LEVEL (07/03/2014 10:09 AM CDT) IRON 77 50 - 170 ug/dL 07/03/2014 3:55 PM CD[address] [facility] Blood Venipuncture - L ab Collect / Unknown 07/03/2014 10:09 AM CDT 07/03/2014 10:09 AM CDT us Nimisha Payan MD CHEMISTRY ORDERABLES Final Result Performing Organization Address City/[facility]/ZIP Co de Phone Number [facility] [employer] CLIA # [id number] [address] [place] [phone] documented in this encounter Visit Diagnoses Not on filedocumented in this encounter
[2025-07-28 07:28] VITALS: BP 156/58; PULSE 115; RESP 16; O2SAT 100
--- NOTE | 2025-07-28 07:45 | ED_ITS ---
HPI - General Adult General: Chief complaint: General Medical Stated complaint: Fall Time Seen by Provider: 07/28/25 07:15 History of Present Illness: 79-year-old female who presents emergenc y room from surgery. Unwitnessed fall last night. She has a known history of dementia which reports is worsening. She denies any pain. reports she fell when he was out of the room. There was no loss conscious or stopping any vomiting. Patient denies any pain or injury. She denies striking her head she has no evidence of any injury to her head her only complaint right now has Smith catheter that was placed prior to surgery that she finds very irritating. Preop lab work done today shows signs of a bladder infection. Associated symptoms: Deny chest pain, dyspnea or rash Related Data Home Medications ?Medication ?Instructions ?Recorded ?Confirmed ibuprofen 200 mg tablet (Advil) 400 mg PO Q6H PRN Feve r Or Pain 07/28/25 07/28/25 Previous Rx's ?Medication ?Instructions ?Recorded cephalexin 500 mg capsule 500 mg PO TID 7 days #21 cap s 07/28/25 Allergies Allergy/AdvReac Type Severity Reaction Status Date / Time Penicillins Allergy Unknown Unknown Verified 07/28/25 06:19 Review of Systems Const: Denies: fever(s) or chills Card: Denies: chest pain Resp: Denies: dyspnea GI: Denies: abdominal pain : Denies: dysuria, urinary frequency or urinary urgency Musc: Denies: neck pain or back pain Skin/Breast: Denies: rash PFSH ED PFSH: Social History Smoking and tobacco/nicotine status: never used tobacco/nicotine Physical Exam Const: GENERAL APPEARANCE: cooperative ORIENTATION/CONSCIOUSNESS: Yes awake HENMT: COMMON NORMALS: normocephalic, atraumatic and hearing grossly normal bilaterally HEAD & SCALP: normocephalic and atraumatic Resp: COMMON NORMALS: normal respiratory effort, No retractions, No use of accessory muscles and clear to auscultation bilaterally AUSCULTATION: clear to auscultation bilaterally Cardio: COMMON NORMALS: regular rate, regular rhythm and No murmurs present (Cardio) RATE: regular rate RHYTHM: regular rhythm GI: COMMON NORMALS: Soft to palpation and No hepatosplenomegaly present AUSCULTATION: Yes normoactive bowel sounds PALPATION: Yes Soft to palpation, No Tenderness to palpation present (GI), No Guarding due to palpation present (GI) and Yes No hepatosplenomegaly present Extremity: COMMON NORMALS: normal to inspection, capillary refill normal, no clubbing, cyanosis or edema, no calf tenderness and no pedal edema Skin: COMMON NORMALS: no rashes or lesions noted GENERAL SKIN EXAM: no rashes or lesions noted Course Vital Signs: Vital signs: Vital Signs Temperature 97.7 F 07/28/25 07:16 Pulse Rate 86 07/28/25 09:23 Respiratory Rate 16 07/28/25 08:51 Blood Pressure 148/97 07/28/25 08:51 Pulse Oximetry 98 07/28/25 09:23 Oxygen Delivery Me thod Room Air 07/28/25 08:51 MDM - General Adult Medical Decision Making Patient is rather agitated when directly if she had a Smith in place this was removed. She has a signs of bladder infection I think which is causing her worsening dementia they reported that she fallen at home was able to confirm this. There is no evidence that she fell noted she denies any head or neck pain there is no evidence of any injury. She has no pain in her neck with movement. Will treat her cystitis have her follow-up with her primary care doctor. She can contact Ortho to reschedule the knee replacement if she wishes. Medical Records I reviewed the patient's medical records. Lab Data I reviewed the patient's lab results. All radiology interpretation(s) finalized by discharge Discharge Plan Discharge Patient Disposition: Home Clinical Impression: Cystitis, Dementia Condition: Stable Prescriptions: New cephalexin 500 mg capsule 500 mg PO TID 7 Days Qty: 21 0RF No Action ibuprofen [Advil] 200 mg Tablet 400 mg PO Q6H PRN (Reason: Fever Or Pain) Discharge Orders: Discharge ED (Routine); Ordered 07/28/25 Ordered By: Hieu Shelley Referrals: Shankar Friedman MD [Primary Care Provider, Family Practice] Discharge Diet: Usual diet Discharge Activity: Resume usual activity Patient Instructions: Opioid Safety, Pain Management, Patient Portal & Paul Instructions Activity Restrictions/Additional Instructions: [facility]. It is very important that you follow up as instructed or that you return to the Emergency Department should you have concerns or if your condition changes or worsens in any way. Emergency department visits are focused on emergent conditions, in some cases you may require further evaluation on an outpatient basis. You were seen in the emergency room with complaints of worsening of your dementia issues and a fall. On exam there is no evidence of injury after the fall you did have a bladder infection. Will discharge you home once antibiotics. You are given initial dose of antibiotics emergency room begin the oral antibiotics tomorrow. (Please note that included in your discharge packet is information concerning opioid safety and pain management. This information is given to all patients were discharged from the ER regardless of their discharge diagnosis or the me dicines they usually take or are prescribed.) Print Language: Tamazight Coding Level of Care Code ED Pharmacy Consultant for David Panda
--- NOTE | 2025-07-28 07:47 | ECG_ITS ---
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 Measurements Intervals [place] Rate: 115 P: 0 MI: 0 QRS: -65 QRSD: 138 T: 33 QT: 302 QTc: 419 Interpretive Statements SINUS TACHYCARDIA RIGHT BUNDLE BRANCH BLOCK [120+ ms QRS DURATION, UPRIGHT V1, 40+ ms S IN I/aVL/V4/V5/V6] LEFT ANTERIOR FASCICULAR BLOCK [QRS AXIS <= -45, QR IN I, RS IN II] VOLTAGE CRITERIA FOR LVH [MEETS CRITERIA IN ONE OF: R(aVL), S(V1), R(V5), R(V5/V6)+S(V1)] Compared to ECG 07/28/2025 06:47:45 NO SIGNIFICANT CHANGE Electronically Signed On 07-29-2025 19:26:39 CDT by Myles Avila M.D. [email or web address]
[2025-07-28 08:14] VITALS: BP 155/113; PULSE 112; RESP 16; O2SAT 100
[2025-07-28] MEDS: cefTRIAXone 1,000 mg SDV 1000 MG IVP (08:22)
[2025-07-28 08:51] VITALS: BP 148/97; PULSE 107; RESP 16; O2SAT 94
--- NOTE | 2025-07-28 08:51 | PC.NURSE ---
JOE REMOVED. PATIENT TOLERATED WELL.
[2025-07-28 09:23] VITALS: PULSE 86; O2SAT 98
== END 2025-07-28 09:24 | disposition home or self-care (01) ==
PROVIDERS: Emergency Provider Family Medicine; PCP Family Medicine
DX: N30.90 Cystitis, unspecified without hematuria (principal); F03.90 Unspecified dementia, unspecified severity, without behavioral disturbance, psychotic disturbance, mood disturbance, and anxiety
CPT/HCPCS: 36415; 87040; 93005; 96374; 96375; 99284; J0696; J1885